=== PATIENT | female | born 1950 | race Caucasian/White ===

== ENCOUNTER → 2023-12-13 13:11 | Outpatient (REF) | payer OTHER, SELFPAY | LOC: RAD 13:11 | PROVIDERS: ATTENDING PHYSICIAN Surgery Vascular Surgery; FAMILY PHYSICIAN Nurse Practitioner | DX: I65.21 Occlusion and stenosis of right carotid artery (principal) | CPT/HCPCS: 93880 ==

== ENCOUNTER → 2024-06-13 14:36 | Outpatient (REF) | payer OTHER, SELFPAY | LOC: WDC 14:36 | PROVIDERS: ATTENDING PHYSICIAN Nurse Practitioner | DX: Z12.31 Encounter for screening mammogram for malignant neoplasm of breast (principal) | CPT/HCPCS: 77063; 77067 ==

== ENCOUNTER 2024-07-20 15:33 | Emergency (ER) | payer SELFPAY ==
[2024-07-20 15:37] VITALS: BP 207/74
[2024-07-20 16:00] VITALS: BP 197/73
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
[2024-07-20 17:00] VITALS: BP 173/89
[2024-07-20 19:18] VITALS: BP 178/68
== END 2024-07-20 20:03 | disposition home or self-care (01) ==
LOC: EMR 15:33
PROVIDERS: EMERGENCY PHYSICIAN Student in an Organized Health Care Education/Training Program; FAMILY PHYSICIAN Nurse Practitioner
DX: S16.1XXA Strain of muscle, fascia and tendon at neck level, initial encounter (principal); S20.219A Contusion of unspecified front wall of thorax, initial encounter; V89.2XXA Person injured in unspecified motor-vehicle accident, traffic, initial encounter; Y92.410 Unspecified street and highway as the place of occurrence of the external cause; E78.00 Pure hypercholesterolemia, unspecified; Z86.73 Personal history of transient ischemic attack (TIA), and cerebral infarction without residual deficits; Z87.891 Personal history of nicotine dependence; Z95.1 Presence of aortocoronary bypass graft
CPT/HCPCS: 99284; 70450; 71046; 72125

== ENCOUNTER → 2024-09-14 13:10 | Outpatient (REF) | payer OTHER, SELFPAY | LOC: HWRAD 13:10 | PROVIDERS: ATTENDING PHYSICIAN Surgery; FAMILY PHYSICIAN Nurse Practitioner | DX: N20.0 Calculus of kidney (principal) | CPT/HCPCS: 76770 ==

== ENCOUNTER 2024-10-10 06:25 | Day surgery (SDC) | payer OTHER, SELFPAY ==
[2024-10-10 07:31] LABS: Glucose - Point of Care 249 mg/dl (70-99)
== END 2024-10-10 10:00 | disposition home or self-care (01) ==
LOC: GI 06:25
PROVIDERS: ATTENDING PHYSICIAN Internal Medicine
DX: Z12.11 Encounter for screening for malignant neoplasm of colon (principal); K64.8 Other hemorrhoids; K55.20 Angiodysplasia of colon without hemorrhage; K57.30 Diverticulosis of large intestine without perforation or abscess without bleeding; D12.4 Benign neoplasm of descending colon; Z80.0 Family history of malignant neoplasm of digestive organs; R19.5 Other fecal abnormalities
CPT/HCPCS: 45380; 88305; 82962

== ENCOUNTER → 2024-12-18 12:58 | Outpatient (REF) | payer OTHER, SELFPAY | LOC: RAD 12:58 | PROVIDERS: ATTENDING PHYSICIAN Surgery Vascular Surgery; FAMILY PHYSICIAN Nurse Practitioner | DX: I65.21 Occlusion and stenosis of right carotid artery (principal) | CPT/HCPCS: 93880 ==

== ENCOUNTER → 2025-01-25 12:57 | Outpatient (REF) | payer OTHER, SELFPAY | LOC: RAD 12:57 | PROVIDERS: ATTENDING PHYSICIAN Internal Medicine; FAMILY PHYSICIAN Nurse Practitioner | DX: K76.0 Fatty (change of) liver, not elsewhere classified (principal) | CPT/HCPCS: 76700 ==

== ENCOUNTER → 2025-03-23 12:40 | Outpatient (REF) | payer OTHER, SELFPAY | LOC: RAD 12:40 | PROVIDERS: ATTENDING PHYSICIAN Internal Medicine Hematology & Oncology; FAMILY PHYSICIAN Nurse Practitioner | DX: D47.2 Monoclonal gammopathy (principal) | CPT/HCPCS: 77075 ==

== ENCOUNTER → 2025-06-29 12:11 | Outpatient (REF) | payer OTHER, SELFPAY | LOC: HWRAD 12:11 | PROVIDERS: ATTENDING PHYSICIAN Internal Medicine Nephrology; FAMILY PHYSICIAN Nurse Practitioner | DX: N18.4 Chronic kidney disease, stage 4 (severe) (principal); I12.9 Hypertensive chronic kidney disease with stage 1 through stage 4 chronic kidney disease, or unspecified chronic kidney disease | CPT/HCPCS: 76775 ==